=== PATIENT | female | born 1940 | race Caucasian/White ===

== ENCOUNTER 2019-05-22 17:54 | Emergency (ER) | payer MEDICARE ==
[~2019-05-22] VITALS: Ht 157.5 cm; Wt 60.0 kg
[~2019-05-22 17:54] MED LIST: AZIT250T27 PO
[2019-05-22] MEDS ORDERED: HYDROcodone/acetaminophen 10/325mg tab PO ONE (18:45)
[2019-05-22] MEDS ORDERED: LIDOcaine 1% w/epiNEPHrine 1:200,000 30ml vial IM ONE (18:45)
--- NOTE | 2019-05-22 19:05 | NUR ---
Note blane in EDM - 05/22/19 at 1915 by AVERY Call placed to number on file after attempting to triage 3 times. Left message expressing concern for Pt.'s wellbeing and encouragement her to return for Eval. Dr. Densonfs informed.
[2019-05-22 19:21] VITALS: BP 153/63
[2019-05-22] MEDS ORDERED: ondansetron 4mg rapidly disintigrating tab PO ONE (20:00)
[2019-05-22] MEDS ORDERED: HYDR-4383 PO (20:50)
== END 2019-05-22 21:10 | disposition home or self-care (01) ==
LOC: ER 17:54
DX: S52.591A Other fractures of lower end of right radius, initial encounter for closed fracture (principal); S80.02XA Contusion of left knee, initial encounter; S00.31XA Abrasion of nose, initial encounter; Z88.0 Allergy status to penicillin; Z88.2 Allergy status to sulfonamides; Z88.1 Allergy status to other antibiotic agents; Z88.6 Allergy status to analgesic agent; Z90.49 Acquired absence of other specified parts of digestive tract; Z79.2 Long term (current) use of antibiotics; Z79.899 Other long term (current) drug therapy; W18.39XA Other fall on same level, initial encounter; Y93.89 Activity, other specified; Y92.89 Other specified places as the place of occurrence of the external cause; Y99.8 Other external cause status
CPT/HCPCS: 25605; 73100; 73110; 73564; 99284; J2405

== ENCOUNTER 2020-05-30 12:53 | Emergency (ER) | payer MEDICARE ==
[~2020-05-30] VITALS: Ht 157.5 cm; Wt 136.0 kg
[~2020-05-30 12:53] MED LIST changes: +HYDR-4383 PO
[2020-05-30] MEDS ORDERED: pantoprazole 40 MG vial IV ONE (13:35)
[2020-05-30] MEDS ORDERED: ondansetron/PF 4mg/2ml inj IV ONE (13:35)
[2020-05-30] MEDS ORDERED: normal saline 1000ml 1,000 ML IV ONE ×2 (13:35→17:00)
[2020-05-30] MEDS ORDERED: famotidine/PF 10 mg/ml inj IV ONE (13:35)
[2020-05-30 13:51] LABS: BASOPHILS % (AUTO) 0.5 % (0-1); EOSINOPHILS % (AUTO) 0.1 % (0-6); HEMATOCRIT 40.1 % (35.0-45.0); HEMOGLOBIN 13.5 g/dl (12.0-16.0); LYMPHOCYTES # (AUTO) 1.3 X10'3 (1.1-4.8); LYMPHOCYTES % (AUTO) 17.5 % (21-51); MEAN CORPUSCULAR HEMOGLOBIN 31.9 PG (27.0-31.0); MEAN CORPUSCULAR HGB CONC 33.6 g/dL (33.0-36.5); MONOCYTES # (AUTO) 0.5 X10'3 (0-0.9); MONOCYTES % (AUTO) 6.3 % (2-12); NEUTROPHILS # (AUTO) 5.7 X10'3 (1.8-7.7); NEUTROPHILS % (AUTO) 75.6 % (42-75); PLATELET COUNT 240 X10'3 (140-440); RED BLOOD COUNT 4.21 X10'6 (4.20-5.60); RED CELL DISTRIBUTION WIDTH 14.3 % (11.5-14.5); WHITE BLOOD COUNT 7.5 X10'3 (4.5-11.0)
[2020-05-30] MEDS ORDERED: PANT-47 PO (14:00)
[2020-05-30] MEDS ORDERED: ONDA8TAB6 PO (14:00)
[2020-05-30 14:11] LABS: ALANINE AMINOTRANSFERASE 22 U/L (12-78); ALBUMIN 3.5 G/DL (3.4-5.0); ALBUMIN/GLOBULIN RATIO 1.1 (1.1-1.5); ALKALINE PHOSPHATASE 99 IU/L (46-116); ANION GAP 7 (8-16); ASPARTATE AMINO TRANSFERASE 20 U/L (10-37); BILIRUBIN,TOTAL 1.1 MG/DL (0.1-1.0); BLOOD UREA NITROGEN 11 MG/DL (7-18); BUN/CREATININE RATIO 10.6 (6.6-38.0); CALCIUM 9.4 MG/DL (8.5-10.1); CHLORIDE 103 MMOL/L (99-107); CREATININE 1.04 MG/DL (0.40-0.90); GLUCOSE 116 MG/DL (70-104); POTASSIUM 3.9 MMOL/L (3.5-5.1); SODIUM 136 MMOL/L (135-145); TOTAL CARBON DIOXIDE 25.6 MMOL/L (24-32); TOTAL PROTEIN 6.8 G/DL (6.4-8.2); eGFR 51 ML/MIN
[2020-05-30 14:31] LABS: CLARITY,URINE CLEAR (Clear); COLOR,URINE YELLOW (Yellow); GLUCOSE, URINE NEGATIVE (Neg); KETONES,URINE 15 mg/dl (Neg); LEUKOCYTE ESTERASE ,URINE NEGATIVE (Neg); NITRITES, URINE NEGATIVE (Neg); OCCULT BLOOD,URINE NEGATIVE (Neg); PROTEIN,URINE NEGATIVE (Neg); UROBILINOGEN,URINE 0.2 E.U/dL (0.2-1.0)
[2020-05-30 14:37] LABS: UA COLLECTION TYPE CLN CATCH MIDSTREAM
[2020-05-30] MEDS ORDERED: iohexol 300mg/ml 100ml inj. ONE (15:50)
[2020-05-30] MEDS ORDERED: meclizine 12.5mg tablet PO ONE (17:00)
[2020-05-30] MEDS ORDERED: proCHLORperazine 10 MG/2 ml inj IV PRN (17:30)
[2020-05-30 19:15] VITALS: BP 158/63
== END 2020-05-30 19:55 | disposition home or self-care (01) ==
LOC: ER 12:54
DX: K29.70 Gastritis, unspecified, without bleeding (principal); Z90.49 Acquired absence of other specified parts of digestive tract; Z88.0 Allergy status to penicillin; Z88.2 Allergy status to sulfonamides; Z88.1 Allergy status to other antibiotic agents; Z88.6 Allergy status to analgesic agent; Z79.2 Long term (current) use of antibiotics; Z79.899 Other long term (current) drug therapy
CPT/HCPCS: 36415; 74177; 80053; 81003; 83605; 83735; 84484; 85025; 93005; 96361; 96374; 96375; 99285; C9113; J0780; J2405; J3490; J7030; Q9967

== ENCOUNTER 2020-06-26 10:43 | Day surgery (SDC) | payer MEDICARE, MEDICAID ==
[2020-06-26] VITALS (8 sets, daily range): BP systolic 127–151; BP diastolic 58–78
[~2020-06-26] VITALS: Ht 157.5 cm; Wt 63.0 kg
[~2020-06-26 10:43] MED LIST changes: +ONDA8TAB6 PO; +PANT-47 PO
[2020-06-26] MEDS ORDERED: diphenhydrAMINE 25mg capsule PO ONE (11:10)
[2020-06-26] MEDS ORDERED: normal saline 1000ml 1,000 ML IV SCH ×2 (11:10→15:00)
[2020-06-26] MEDS ORDERED: MELO-102 PO (11:21)
[2020-06-26] MEDS ORDERED: ESCI10TA61 PO (11:21)
[2020-06-26] MEDS ORDERED: MULT-1133 (11:21)
[2020-06-26] MEDS ORDERED: LISI-604 PO (11:21)
[2020-06-26] MEDS ORDERED: CHOL500049 PO (11:22)
[2020-06-26] MEDS ORDERED: CYAN50003 PO (11:22)
[2020-06-26 12:04] LABS: BASOPHILS % (AUTO) 0.5 % (0-1); EOSINOPHILS % (AUTO) 0.6 % (0-6); HEMATOCRIT 37.6 % (35.0-45.0); HEMOGLOBIN 12.6 g/dl (12.0-16.0); LYMPHOCYTES # (AUTO) 1.7 X10'3 (1.1-4.8); LYMPHOCYTES % (AUTO) 21.1 % (21-51); MEAN CORPUSCULAR HEMOGLOBIN 31.9 PG (27.0-31.0); MEAN CORPUSCULAR HGB CONC 33.6 g/dL (33.0-36.5); MEAN PLATELET VOLUME 7.9 FL (7.4-10.4); MONOCYTES # (AUTO) 0.6 X10'3 (0-0.9); MONOCYTES % (AUTO) 7.8 % (2-12); NEUTROPHILS # (AUTO) 5.8 X10'3 (1.8-7.7); PLATELET COUNT 268 X10'3 (140-440); RED BLOOD COUNT 3.96 X10'6 (4.20-5.60); RED CELL DISTRIBUTION WIDTH 13.8 % (11.5-14.5); WHITE BLOOD COUNT 8.2 X10'3 (4.5-11.0)
[2020-06-26 12:15] LABS: ALBUMIN 3.4 G/DL (3.4-5.0); ANION GAP 7 (8-16); BLOOD UREA NITROGEN 15 MG/DL (7-18); CALCIUM 9.2 MG/DL (8.5-10.1); CHLORIDE 107 MMOL/L (99-107); CREATININE 0.88 MG/DL (0.40-0.90); GLUCOSE 96 MG/DL (70-104); POTASSIUM 4.3 MMOL/L (3.5-5.1); SODIUM 141 MMOL/L (135-145); TOTAL CARBON DIOXIDE 26.9 MMOL/L (24-32); eGFR 62 ML/MIN
[2020-06-26] MEDS ORDERED: midazolam 2 mg/2 ml injection ONE ×2 (12:58→13:54)
[2020-06-26] MEDS ORDERED: iohexol 350MG/ML 100ml bottle IV ONE ×2 (12:58→13:53)
[2020-06-26] MEDS ORDERED: iohexol 350 MG/ML 50ML vial IV ONE (12:58)
[2020-06-26] MEDS ORDERED: LIDOcaine 1% (10mg/ml)w/preservative injection 20ml MDV ONE (12:58)
[2020-06-26] MEDS ORDERED: fentaNYL/PF 50MCG/1 ML 2ML syringe ONE ×2 (12:58→13:54)
[2020-06-26] MEDS ORDERED: heparin 1,000unit/ml 10ml vial 10 ML ONE ×2 (12:58→13:56)
[2020-06-26] MEDS ORDERED: heparin 1,000 UNITS/NS 500ml 500 ML ONE (12:59)
[2020-06-26] MEDS ORDERED: nitroGLYCERIN-Tridil 50MG/D5W 250 ML IV ONE (14:21)
[2020-06-26] MEDS ORDERED: clopidogrel 300mg tablet ONE (14:32)
[2020-06-26] MEDS ORDERED: proCHLORperazine 10 MG/2 ml inj IV PRN (15:00)
[2020-06-26] MEDS ORDERED: ondansetron/PF 4mg/2ml inj IV PRN (15:00)
[2020-06-26] MEDS ORDERED: HYDROcodone/acetaminophen 10/325mg tab PO PRN (15:00)
[2020-06-26] MEDS ORDERED: HYDROcodone/acetaminophen 5mg/325mg tablet PO PRN (15:00)
--- NOTE | 2020-06-26 15:56 | NUR ---
Called Dr. Conrad re pt's stated allergy to ASA. Pt states she's unsure if ASA is an actual allergy because it was taken in combination with another medication that produced hives. Dr. Conrad stated to instruct pt to take ASA as prescribed.
== END 2020-06-26 18:15 | disposition home or self-care (01) ==
LOC: SSTAY O 10:43
PROVIDERS: ATTEND Internal Medicine Cardiovascular Disease
DX: R94.39 Abnormal result of other cardiovascular function study (principal); I25.10 Atherosclerotic heart disease of native coronary artery without angina pectoris; R53.83 Other fatigue; I10 Essential (primary) hypertension
CPT/HCPCS: 36415; 80048; 83735; 85025; 85610; 93005; 93458; C1725; C1751; C1760; C1769; C1874; C1894; C9600; J1644; J2001; J2250; J2405; J3010; J7030; Q0163; Q9967; 92920; 99152; 99153; A4620; A6258; J3490